=== PATIENT | female | born 1940 | race Caucasian/White ===

== ENCOUNTER → 2023-05-18 | Emergency (ER) | payer BC, MEDICARE ==
[~2023-05-18] VITALS: Ht 165.1 cm; Wt 59.0 kg
[~2023-05-18] MED LIST: CARV3.122 PO; FELO5TAB45 PO
[2023-05-19 00:52] VITALS: BP 138/62; TEMP 98; O2SAT 96
== END | disposition home or self-care (01) ==
LOC: ER 23:06
DX: S00.03XA Contusion of scalp, initial encounter (principal); I10 Essential (primary) hypertension; Z79.899 Other long term (current) drug therapy; W01.0XXA Fall on same level from slipping, tripping and stumbling without subsequent striking against object, initial encounter; Y93.89 Activity, other specified; Y92.89 Other specified places as the place of occurrence of the external cause; Y99.8 Other external cause status
CPT/HCPCS: 99284; 72125; 70450; 70486; L0172; A6403